=== PATIENT | female | born 1960 | race Caucasian/White ===

== ENCOUNTER 2018-01-27 14:27 | Outpatient (CLI) | payer OTHER | END 2018-01-27 14:28 | disposition home or self-care (01) | LOC: BICMAMMO 14:27 | PROVIDERS: ATTEND Family Medicine | DX: Z12.31 Encounter for screening mammogram for malignant neoplasm of breast (principal); R92.1 Mammographic calcification found on diagnostic imaging of breast | CPT/HCPCS: 77063; 77067 ==

== ENCOUNTER 2018-04-14 15:39 | Outpatient (CLI) | payer OTHER ==
[~2018-04-14 15:39] MED LIST: Iopamidol 370 76% 100 ML VIAL ONE
--- NOTE | 2018-04-14 19:15 | CT ---
CT ABDOMEN WITH AND WITHOUT CONTRAST CT PELVIS WITH AND WITHOUT CONTRAST (CT urogram) 04/14/18 HISTORY: 58-year-old female with microscopic hematuria. TECHNIQUE: IV contrast: 100 mL Isovue 370. Oral contrast: Not administered. Precontrast scan, nephrographic/venous phase scan, and pyelographic/excretory phase scan, were perfor med throughout the entire abdomen and pelvis. Coronal reconstructions of the pyelographic/excretory phase. FINDINGS: There are no renal, ureteral, or bladder calculi. No hydronephrosis. In the anterior parenchyma of th e left renal mid pole, there is a tiny, approximately 0.7 x 0.7 x 0.5 cm focal hypodense lesion, whic h is too small to characterize. It is statistically most likely to represent a cystic lesion. No othe r renal lesion is identified. Bilateral nephrograms are otherwise homogeneous and normal. Urinary ashli dder has normal, thin dempsey, with no filling defect/intraluminal mass. No intra-abdominal or intrapel venice lymphadenopathy. The liver, right kidney, abdominal aorta, adrenals, pancreas, and spleen, are no rmal. Despite the ambulatory technologist statement that there has been an appendectomy, a normal gas-filled appendix is visualized. The uterus is surgically absent. No signs of colonic diverticulitis. No ascit es. Lung bases are grossly clear. No major osseous pathology identified. The bladder base is low-lyin g, and the bilateral UVJs are medialized. IMPRESSION: 1. Tiny subcentimeter focal hypodense lesion in the left renal parenchyma, too small to definiti vely characterize, but statistically most likely to represent a cyst. 2. Pelvic relaxation, status post hysterectomy. 3. No other pathology of genitourinary tract identified. POS: [facility]
== END 2018-04-14 15:40 | disposition home or self-care (01) ==
LOC: SCSCT 15:39
PROVIDERS: ATTEND Urology
DX: R31.29 Other microscopic hematuria (principal); N28.9 Disorder of kidney and ureter, unspecified; N81.89 Other female genital prolapse; Z90.710 Acquired absence of both cervix and uterus
CPT/HCPCS: 74178